=== PATIENT | male | born 1990 | race Caucasian/White ===

== ENCOUNTER 2018-05-12 20:33 | Emergency (ER) | payer OTHER ==
[~2018-05-12] VITALS: Ht 170.2 cm; Wt 109.0 kg
[2018-05-12] MEDS ORDERED: ketorolac trometh inj. 60 MG/2 ML VIAL IM ONE (21:00)
[2018-05-12] MEDS ORDERED: HYDR-565 PO (21:07)
[2018-05-12] MEDS ORDERED: ORPH100T2 PO (21:07)
[2018-05-12] MEDS ORDERED: IBUP-1986 PO (21:07)
[2018-05-12 21:37] VITALS: BP 165/110
== END 2018-05-12 21:38 | disposition home or self-care (01) ==
LOC: ER 20:34
DX: M54.41 Lumbago with sciatica, right side (principal); R20.0 Anesthesia of skin
CPT/HCPCS: 72100; 96372; 99284; J1885